=== PATIENT | female | born 1970 | race Caucasian/White ===

== ENCOUNTER → 2017-11-17 12:12 | Outpatient (CLI) | payer OTHER, SELFPAY ==
--- NOTE | 2017-11-18 06:37 | PFT ---
INTRODUCTION: The patient is a 46-year-old female that presents for pulmonary function testing secondary to a diagnosis of COPD. Respiratory therapy reports good patient effort. Bronchodilators were used during testing. INTERPRETATION: Forced expiration spirometry demonstrates the presence of a mild obstructive ventilatory impairment. There was no significant response to aerosolized bronchodilators. Spirograms are of good quality do not plateau indicating slow emptying of the lungs. Body plethysmography was performed and reveals lung volumes to be within normal limits. Diffusing capacity by single breath CO is mildly reduced at 68% of predicted. When compared to previous pulmonary function studies completed in February 2017, there has been a significant improvement in the patient's DLCO. IMPRESSION: These pulmonary function studies demonstrate the presence of an irreversible mild large airways obstructive ventilatory defect with a symmetric reduction in diffusing capacity. There has been significant improvement in the patient's DLCO since PFTs were last completed in February 2017.
== END ==
LOC: PSN 12:14
PROVIDERS: Visit Provider Nurse Practitioner Acute Care
DX: J44.9 Chronic obstructive pulmonary disease, unspecified (principal)
CPT/HCPCS: 94060; 94726; 94729

== ENCOUNTER → 2017-11-23 06:45 | Outpatient (CLI) | payer OTHER, SELFPAY | LOC: RAD 06:47 | PROVIDERS: Visit Provider Nurse Practitioner Acute Care | DX: R13.10 Dysphagia, unspecified (principal) | CPT/HCPCS: 74246 ==

== ENCOUNTER → 2017-11-30 20:00 | Outpatient (CLI) | payer OTHER, SELFPAY | LOC: SL 23:21 | PROVIDERS: Visit Provider Nurse Practitioner Acute Care | DX: G47.33 Obstructive sleep apnea (adult) (pediatric) (principal) | CPT/HCPCS: 95810; 95811 ==